=== PATIENT | male | born 1965 | race Hispanic/Latino ===

== ENCOUNTER 2019-11-06 13:32 | Inpatient (IN) | payer SELFPAY ==
[2019-11-06 14:33] LABS: Absolute Lymphocytes (CBC) 0.6 K/uL (0.7-4.9); Basophils % 0.3 % (0-1.3); Hematocrit 42.5 % (39.6-49.0); Lymphocytes % 7.3 % (15.3-44.8); MPV 8.5 fL (7.6-11.3); RBC Red Blood Cell Count 4.97 M/uL (4.33-5.43)
[2019-11-06 14:34] LABS: Protime INR 1.15
[2019-11-06] MEDS ORDERED: CEFTRIAXONE/SWI 1gm 1 GM/10 ML SYR ONE (14:46)
[2019-11-06] MEDS ORDERED: NA CHLORIDE 0.9% 1,000 ML ONE (14:46)
[2019-11-06 14:53] LABS: ALT/SGPT 42 U/L (12-78); AST/SGOT 43 U/L (15-37); Albumin 3.3 g/dL (3.4-5.0); Alkaline Phosphatase 45 U/L (45-117); BUN Blood Urea Nitrogen 10 mg/dL (7-18); Bicarbonate 21 mmol/L (21-32); Bilirubin Direct 0.1 mg/dL (0-0.2); Bilirubin Total 0.4 mg/dL (0.2-1.0); Glucose Level 134 mg/dL (74-106); Magnesium 2.2 mg/dL (1.8-2.4); NT PRO-BNP 39 pg/mL (<125); Protein, Total 8.2 g/dL (6.4-8.2); Sodium Level 129 mmol/L (136-145); Troponin (Emerg Dept Use Only) < 0.02 ng/mL (0.0-0.045)
--- NOTE | 2019-11-06 14:53 | RAD REPORT ---
EXAM DESCRIPTION: Jose Single View11/06/2019 2:40 pm CLINICAL HISTORY: cough COMPARISON: none FINDINGS: Mild reticulonodular opacities suspected within the lung bases A lung consolidation is not seen. The heart is normal size IMPRESSION: Mild reticulonodular opacities suspected within the lung bases which may indicate an aty pical pneumonia
[2019-11-06] MEDS ORDERED: AZITHROMYCIN IV 500 MG in NA CHLORIDE 0.9% 250 ML IVPB ONE (15:00)
--- NOTE | 2019-11-06 15:13 | EDPHYS ---
Physician Documentation [facility] Name: Tyrone Bueno Age: 54 yrs Sex: Male : 1965 Arrival Date: 11/06/2019 Time: 13:37 Bed 6 Private MD: ED Physician Estiven Coronado HPI: 11/05 14:15 This 54 yrs old Male presents to ER via Wheelchair with complaints of Cough, oj Shortness Of Breath. 14:15 The patient or guardian reports cough, described as mild, difficulty breathing. Onset: oj The symptoms/episode began/occurred 4 day(s) ago. Severity of symptoms: At their worst the symptoms were mild, in the emergency department the symptoms are unchanged. Modifying factors: The symptoms are alleviated by nothing, the symptoms are aggravated by nothing. Associated signs and symptoms: Pertinent positives: chest pain, rhinorrhea, sore throat, this patient has no pertinent positive symptoms. The patient has not experienced similar symptoms in the past. Historical: - Allergies: 13:50 No Known Allergies; hb - PMHx: 13:50 Hypertension; hb - PSHx: 13:50 None; hb - Immunization history:: Adult Immunizations up to date. - Social history:: Smoking status: Patient/guardian denies using tobacco. - Family history:: not pertinent. ROS: 14:15 Constitutional: Negative for fever, chills, and weight loss, Eyes: Negative for injury, oj pain, redness, and discharge, ENT: Negative for injury, pain, and discharge, Neck: Negative for injury, pain, and swelling, Cardiovascular: Negative for chest pain, palpitations, and edema, Abdomen/GI: Negative for abdominal pain, nausea, vomiting, diarrhea, and constipation, Back: Negative for injury and pain, : Negative for injury, bleeding, discharge, and swelling, MS/Extremity: Negative for injury and deformity, Skin: Negative for injury, rash, and discoloration, Neuro: Negative for headache, weakness, numbness, tingling, and seizure, Psych: Negative for depression, anxiety, suicide ideation, homicidal ideation, and hallucinations, Allergy/Immunology: Negative for hives, rash, and allergies, Endocrine: Negative for neck swelling, polydipsia, polyuria, polyphagia, and marked weight changes, Hematologic/Lymphatic: Negative for swollen nodes, abnormal bleeding, and unusual bruising. 14:15 Respiratory: Positive for cough, shortness of breath. Exam: 14:15 Constitutional: This is a well developed, well nourished patient who is awake, alert, oj and in no acute distress. Head/Face: Normocephalic, atraumatic. Eyes: Pupils equal round and reactive to light, extra-ocular motions intact. Lids and lashes normal. Conjunctiva and sclera are non-icteric and not injected. Cornea within normal limits. Periorbital areas with no swelling, redness, or edema. ENT: Nares patent. No nasal discharge, no septal abnormalities noted. Tympanic membranes are normal and external auditory canals are clear. Oropharynx with no redness, swelling, or masses, exudates, or evidence of obstruction, uvula midline. Mucous membranes moist. Neck: Trachea midline, no thyromegaly or masses palpated, and no cervical lymphadenopathy. Supple, full range of motion without nuchal rigidity, or vertebral point tenderness. No Meningismus. Chest/axilla: Normal chest wall appearance and motion. Nontender with no deformity. No lesions are appreciated. Cardiovascular: Regular rate and rhythm with a normal S1 and S2. No gallops, murmurs, or rubs. Normal PMI, no JVD. No pulse deficits. Abdomen/GI: Soft, non-tender, with normal bowel sounds. No distension or tympany. No guarding or rebound. No evidence of tenderness throughout. Back: No spinal tenderness. No costovertebral tenderness. Full range of motion. Male : Normal genitalia with no discharge or lesions. Skin: Warm, dry with normal turgor. Normal color with no rashes, no lesions, and no evidence of cellulitis. MS/ Extremity: Pulses equal, no cyanosis. Neurovascular intact. Full, normal range of motion. Neuro: Awake and alert, GCS 15, oriented to person, place, time, and situation. Cranial nerves II-XII grossly intact. Motor strength 5/5 in all extremities. Sensory grossly intact. Cerebellar exam normal. Normal gait. Psych: Awake, alert, with orientation to person, place and time. Behavior, mood, and affect are within normal limits. 14:15 Respiratory: the patient does not display signs of respiratory distress, Respirations: normal, Breath sounds: decreased breath sounds, that are mild, Respiratory rate: 16 Vital Signs: 13:46 BP 113 / 82; Pulse 98; Resp 16; Temp 98; Pulse Ox 94% ; Weight 63.5 kg; Height 5 ft. 8 hb in. (172.72 cm); Pain 0/10; 14:40 BP 121 / 97; Pulse 87; Resp 22 S; Pulse Ox 97% on R/A; aa5 16:00 BP 128 / 88; Pulse 90; Resp 24 S; Temp 98.0(TE); Pulse Ox 96% on R/A; Pain 0/10; aa5 17:00 BP 129 / 89; Pulse 88; Resp 24 S; Pulse Ox 95% on R/A; aa5 13:46 Body Mass Index 21.29 (63.50 kg, 172.72 cm) hb MDM: 13:51 Patient medically screened. [facility] 14:18 Data reviewed: vital signs, nurses notes, lab test result(s), EKG, radiologic studies, oj plain films. 11/05 14:15 Order name: Basic Metabolic Panel [facility] 11/05 14:15 Order name: CBC with Diff [facility] 11/05 14:15 Order name: LFT's [facility] 11/05 14:15 Order name: Magnesium [facility] 11/05 14:15 Order name: NT PRO-BNP [facility] 11/05 14:15 Order name: PT-INR; Complete Time: 15:09 [facility] 11/05 14:15 Order name: Troponin (emerg Dept Use Only); Complete Time: 15:09 [facility] 11/05 14:15 Order name: Blood Culture Adult (2) [facility] 11/05 14:15 Order name: Strep; Complete Time: 15:09 [facility] 11/05 14:15 Order name: Influenza Screen (a \T\ B); Complete Time: 15:09 [facility] 11/05 14:15 Order name: COVID-19 [facility] 11/05 14:15 Order name: Lactate; Complete Time: 15:09 [facility] 11/05 14:16 Order name: Basic Metabolic Panel; Complete Time: 15:09 [facility] 11/05 14:16 Order name: CBC with Automated Diff [facility] 11/05 14:16 Order name: Liver (Hepatic) Function; Complete Time: 15:09 EDMS 11/05 14:16 Order name: Magnesium; Complete Time: 15:09 [facility] 11/05 14:16 Order name: NT PRO-BNP; Complete Time: 15:09 [facility] 11/05 14:56 Order name: Throat Culture [facility] 11/05 17:12 Order name: Comprehensive Metabolic Panel [facility] 11/05 17:12 Order name: Comprehensive Metabolic Panel [facility] 11/05 17:12 Order name: Creatine Phosphokinase [facility] 11/05 17:13 Order name: Creatine Phosphokinase [facility] 11/05 17:13 Order name: Creatine Phosphokinase [facility] 11/05 17:13 Order name: Creatine Phosphokinase [facility] 11/05 17:13 Order name: Troponin I [facility] 11/05 17:13 Order name: Troponin I [facility] 11/05 17:13 Order name: Troponin I [facility] 11/05 17:13 Order name: Troponin I [facility] 11/05 17:13 Order name: Sputum Culture [facility] 11/05 17:13 Order name: Sputum Gram Stain [facility] 11/05 14:15 Order name: XRAY Chest (1 view); Complete Time: 15:09 [facility] 11/05 14:15 Order name: EKG; Complete Time: 14:17 [facility] 11/05 14:15 Order name: Cardiac monitoring; Complete Time: 14:49 [facility] 11/05 14:15 Order name: EKG - Nurse/Tech; Complete Time: 14:49 [facility] 11/05 14:15 Order name: IV Saline Lock; Complete Time: 14:49 [facility] 11/05 14:15 Order name: Labs collected and sent; Complete Time: 14:49 [facility] 11/05 14:15 Order name: O2 Per Protocol; Complete Time: 14:49 [facility] 11/05 14:15 Order name: O2 Sat Monitoring; Complete Time: 14:49 [facility] 11/05 15:10 Order name: CT Chest For PE Angio [facility] 11/05 17:12 Order name: CONS Pharmacy Consult [facility] 11/05 17:12 Order name: CONS Pharmacy Consult [facility] 11/05 17:12 Order name: CONS Physician Consult [facility] 11/05 17:12 Order name: CONS Physician Consult [facility] 11/05 17:14 Order name: Regular [facility] 11/05 17:14 Order name: CORONAVIRUS [facility] Administered Medications: 14:40 Drug: NS 0.9% 1000 ml Route: IV; Rate: 1 bolus; Site: right forearm; aa5 16:00 Follow up: IV Status: Completed infusion; IV Intake: 1000ml aa5 16:00 Drug: Rocephin 1 grams Route: IV; Rate: per protocol; Site: right forearm; aa5 16:03 Follow up: Response: No adverse reaction; IV Status: Completed infusion aa5 16:03 Drug: Zithromax 500 mg Route: IVPB; Infused Over: 1 hrs; Site: right forearm; aa5 17:03 Follow up: Response: No adverse reaction; IV Status: Completed infusion aa5 Disposition: 11/06/19 15:12 Hospitalization ordered by Cade Mullins for Inpatient Admission. Preliminary diagnosis are Cough, Dyspnea, Hypoxemia, Pneumonia, unspecified organism - atypical bilateral bases, failed outpatient treatment. - Bed requested for Telemetry/MedSurg (Inpatient). - Status is Inpatient Admission. aa5 - Condition is Fair. - Problem is new. - Symptoms have improved. Signatures: Dispatcher [employer] EDMS Mitali Alberto Corey, MD MD cha Calderon, Audri, RN RN [facility] Alissa Bess RN RN Corrections: (The following items were deleted from the chart) 17:25 15:12 Hospitalization Ordered by Cade Mullins MD for Inpatient Admission. Preliminary bd diagnosis is Cough; Dyspnea; Hypoxemia; Pneumonia, unspecified organism - atypical bilateral bases, failed outpatient treatment. Bed requested for Telemetry/MedSurg (Inpatient). Status is Inpatient Admission. Condition is Fair. Problem is new. Symptoms have improved. [facility] 18:45 17:25 11/06/2019 15:12 Hospitalization Ordered by Cade Mullins MD for Inpatient aa5 Admission. Preliminary diagnosis is Cough; Dyspnea; Hypoxemia; Pneumonia, unspecified organism - atypical bilateral bases, failed outpatient treatment. Bed requested for Telemetry/MedSurg (Inpatient). Status is Inpatient Admission. Condition is Fair. Problem is new. Symptoms have improved. bd
--- NOTE | 2019-11-06 15:13 | ER ---
Nurse's Notes [facility] Name: Tyrone Bueno Age: 54 yrs Sex: Male : 1965 Arrival Date: 11/06/2019 Time: 13:37 Bed 6 Private MD: Diagnosis: Cough;Dyspnea;Hypoxemia;Pneumonia, unspecified organism-atypical bilateral bases, failed outpatient treatment Presentation: 11/05 13:46 Chief complaint: Productive cough, chills, and diarrhea x 5 days. Coronavirus screen: hb Proceed with normal triage. Ebola Screen: No symptoms or risks identified at this time. Risk Assessment: Do you want to hurt yourself or someone else? Patient reports no desire to harm self or others. Onset of symptoms was November 01, 2019. 13:46 Method Of Arrival: Wheelchair hb 13:46 Acuity: KAYE 2 hb 14:00 Initial Sepsis Screen: Does the patient meet any 2 criteria? HR > 90 bpm. Does the aa5 patient have a suspected source of infection? Yes: Productive cough/pneumonia. 11/06 09:28 Coronavirus screen: [facility] has been notified of iw person under investigation for COVID-19. [facility] pt lives in [facility], lab notified. 10:03 Coronavirus screen: PUI#: PUI# [id number], called to lab. iw Historical: - Allergies: 11/05 13:50 No Known Allergies; hb - PMHx: 13:50 Hypertension; hb - PSHx: 13:50 None; hb - Immunization history:: Adult Immunizations up to date. - Social history:: Smoking status: Patient/guardian denies using tobacco. - Family history:: not pertinent. Screenin:00 Abuse screen: Denies threats or abuse. Nutritional screening: No deficits noted. aa5 Tuberculosis screening: No symptoms or risk factors identified. Fall Risk None identified. Assessment: 14:00 General: Appears comfortable, Behavior is calm, cooperative. Pain: Denies pain. Neuro: aa5 Level of Consciousness is awake, alert, obeys commands, Oriented to person, place, time, situation. Cardiovascular: Heart tones S1 S2 present Rhythm is regular. Respiratory: Reports shortness of breath at rest cough Airway is patent Respiratory effort is even, unlabored, Respiratory pattern is regular, symmetrical, Breath sounds are diminished bilaterally. GI: Abdomen is round non-distended, Bowel sounds present X 4 quads. Abd is soft and non tender X 4 quads. Patient currently denies diarrhea, nausea, vomiting. : No signs and/or symptoms were reported regarding the genitourinary system. EENT: No signs and/or symptoms were reported regarding the EENT system. Derm: Skin is pink, warm \T\ dry. Musculoskeletal: Range of motion: intact in all extremities. 14:35 Reassessment: x-ray completed by x-ray tech, EKG completed. . aa5 15:00 Reassessment: Pt states he went to a clinic this morning and received antibiotics. aa5 Clinic was contacted and reported administering ceftriaxone 1 gram IM and had been on Azithromycin PO for 5 days prior to today. Dr. Coronado was notified. . 15:35 Reassessment: Pt to CT via stretcher . aa5 16:00 Reassessment: Patient is alert, oriented x 3, equal unlabored respirations, skin aa5 warm/dry/pink. 16:00 Reassessment: SOB noted upon exertion, using urinal at side of bed, pt becomes SOB, HR aa5 increases to 107bpm, and O2 decreases to 94% RA, respirations increase to 34 breaths/minute. . 17:03 Reassessment: Patient is alert, oriented x 3, equal unlabored respirations, skin aa5 warm/dry/pink. Pt sitting up in bed. . 18:40 Reassessment: Patient is alert, oriented x 3, equal unlabored respirations, skin aa5 warm/dry/pink. Vital Signs: 13:46 BP 113 / 82; Pulse 98; Resp 16; Temp 98; Pulse Ox 94% ; Weight 63.5 kg; Height 5 ft. 8 hb in. (172.72 cm); Pain 0/10; 14:40 BP 121 / 97; Pulse 87; Resp 22 S; Pulse Ox 97% on R/A; aa5 16:00 BP 128 / 88; Pulse 90; Resp 24 S; Temp 98.0(TE); Pulse Ox 96% on R/A; Pain 0/10; aa5 17:00 BP 129 / 89; Pulse 88; Resp 24 S; Pulse Ox 95% on R/A; aa5 13:46 Body Mass Index 21.29 (63.50 kg, 172.72 cm) hb ED Course: 13:37 Patient arrived in ED. ag5 13:49 Triage completed. hb 13:50 Arm band placed on. hb 13:51 Estiven Coronado MD is Attending Physician. oj 13:51 Rahul Loza, RN is Primary Nurse. ll1 13:52 Gloira Villalba, RN is Primary Nurse. aa5 14:00 Patient has correct armband on for positive identification. Placed in gown. Bed in low aa5 position. Call light in reach. Side rails up X2. monitor car operator on. Pulse ox on. NIBP on. 14:19 Inserted saline lock: 20 gauge in right forearm, using aseptic technique. Blood aa5 collected. 14:19 Initial lab(s) drawn, by me, sent to lab. First set of blood cultures drawn by me. aa5 14:30 Second set of blood cultures drawn by me. Inserted saline lock: 20 gauge in right aa5 antecubital area, using aseptic technique. Blood collected. 14:41 XRAY Chest (1 view) In Process Unspecified. EDMS 15:11 Cade Mullins MD is Hospitalizing Provider. oj 15:46 CT Chest For PE Angio In Process Unspecified. EDMS 18:40 Patient admitted, IV remains in place. aa5 18:40 No provider procedures requiring assistance completed. aa5 Administered Medications: 14:40 Drug: NS 0.9% 1000 ml Route: IV; Rate: 1 bolus; Site: right forearm; aa5 16:00 Follow up: IV Status: Completed infusion; IV Intake: 1000ml aa5 16:00 Drug: Rocephin 1 grams Route: IV; Rate: per protocol; Site: right forearm; aa5 16:03 Follow up: Response: No adverse reaction; IV Status: Completed infusion aa5 16:03 Drug: Zithromax 500 mg Route: IVPB; Infused Over: 1 hrs; Site: right forearm; aa5 17:03 Follow up: Response: No adverse reaction; IV Status: Completed infusion aa5 Intake: 16:00 IV: 1000ml; Total: 1000ml. aa5 Output: 16:00 Urine: 1000ml (Voided); Total: 1000ml. aa5 Outcome: 15:12 Decision to Hospitalize by Provider. oj 18:40 Admitted to Tele accompanied by tech, via stretcher, with chart, Report called to chavo Godinez RN 18:40 Condition: stable 18:40 Discharge instructions given to patient, Instructed on the need for admit, Demonstrated understanding of instructions. 18:45 Patient left the ED. aa5 Addendum: 14:00 Addendum: Other 11/06/19 at 1400 Droplet precautions were initiated per , positive for a a5 cough and SOB. Signatures: Dispatcher [employer] EDEstiven Patel MD MD cha Williams, Irene, RN Gloria Magdaleno RN RN Alissa Rothman RN RN hb Gaskin, Ajare 5 Rahul Loza RN RN ll1 Corrections: (The following items were deleted from the chart) 19:22 19:21 Patient did not have IV access during this emergency room visit. aaKeyana tony 11/08 07:39 11/06/2019 14:00 Addendum: Other 11/06/19 at 1400 Droplet precautions were initiated per chavo CALDERÓN. aaKeyana
--- NOTE | 2019-11-06 16:09 | RAD REPORT ---
EXAM DESCRIPTION: CT - Chest For Pe Angio - 11/06/2019 3:46 pm CLINICAL HISTORY: cough COMPARISON: None. TECHNIQUE: Dynamically enhanced axial 3 mm thick images of the chest were obtained during administra tion of <100> mL Isovue 370 IV contrast. Coronal and oblique reconstruction images were generated and reviewed. Exam utilizes a protocol for optimal evaluation of pulmonary arterial tree. Maximum intensity projections 3D imaging was utilized All CT scans are performed using dose optimization technique as appropriate and may include automated exposure control or mA/KV adjustment according to patient size. FINDINGS: A pulmonary embolus is not seen. A thoracic aortic aneurysm is not noted. A pleural effusion is not seen. A pericardial effusion is not seen. Mild to moderate peripheral ground-glass opacities IMPRESSION: Negative for a pulmonary embolism. Mild to moderate peripheral ground-glass opacities may indicate Covid pneumonia
[2019-11-06] MEDS ORDERED: ACETAMINOPHEN 500 MG TAB PO PRN (17:03)
[2019-11-06] MEDS ORDERED: MORPHINE 2 MG/ML SYR IV PRN (17:03)
[2019-11-06] MEDS ORDERED: ONDANSETRON 4 MG/2 ML VIAL IV PRN (17:03)
[2019-11-06] MEDS ORDERED: HYDRALAZINE HCL 20 MG/ML VIAL IV PRN (17:06)
[2019-11-06] MEDS: ENOXAPARIN 40 MG/0.4 ML SQ SCH (21:16)
[2019-11-06] MEDS: HYDROXYCHLOROQUINE 200MG TAB PO SCH (21:16)
[2019-11-06] MEDS: FAMOTIDINE 20 MG TAB PO SCH (21:16)
[2019-11-06] MEDS: GUAIFENESIN 600 MG SA TAB PO SCH (21:16)
[2019-11-06] MEDS: ALBUTEROL INHALER 60 PUFF/8 GM IH SCH (21:16)
[2019-11-06] MEDS: predniSONE 20 MG TAB PO SCH (21:17)
[2019-11-06 21:52] VITALS: BMI 23.8
--- NOTE | 2019-11-06 22:18 | HP ---
Date of Admission: 11/06/2019 Presenting Complaint: Cough, shortness of breath. History Of Present Illness: Tyrone Bueno is a 54-year-old male with past medical h istory of hypertension, former tobacco use, admitted because of cough, usually nonproductive. Patien t admitted to diarrhea for 5 days prior to onset of worsening shortness of breath. He denies any fev er or chills. He is mainly speaking and history was limited. He admits to body aches. He denies any chills. On presentation in the ED, he was saturating at 94% on room air. He denies any r ecent cough contact. He denies any recent travel. Past Medical History: Hypertension. Surgical History: None. Allergies: NO KNOWN DRUG ALLERGIES. Home Medications: None. Family History: No history of lung cancer or COPD. Social History: Patient resides in the community. He admits to previous tobacco use, but says he qu it over 10 years ago. No history of alcohol abuse or illicit drug use. Review of Systems: All systems reviewed x10, were negative except as mentioned above. Physical Examination: Current Vital Signs: Blood pressure of 112/83, pulse 98, respiratory rate 19, temperature 98, pulse oximetry 94% on room air. General: Middle-aged male, average built, lying in bed. HEENT: Head is atraumatic, normocephalic. Pupils equal and reactive to light. Neck: No JVD. No carotid bruit. Respiratory: Decreased breath sounds at bases, but otherwise good air entry with no wheeze. Cardiovascular: S1, S2. Rate and rhythm regular. GI: Abdomen full, soft, nontender. Extremities: No pedal edema. No calf tenderness. Neuro: Patient is alert, oriented, conversant. Laboratory Data: WBC 8.5, hemoglobin 14, neutrophils 89%, lymphocytes 7.3%. INR 1.1. Sodium 129, p otassium 4, glucose 134, magnesium 2.2. ProBNP of 39. Rapid troponin was less than 0.02. Imaging Data: Chest x-ray shows bilateral hilar infiltrates. CT of the chest rule out PE protocol s hows no evidence of pulmonary embolism, but notable bilateral infiltrates worrisome for viral pneumon ia and COVID-19 infection. Impression: 1.Bilateral pneumonia. 2.Possible COVID-19 infection. 3.History of hypertension. Plan: We will admit patient to inpatient. We will start patient on contact and droplet precautions. We will initiate patient on steroids p.o. as well as Plaquenil and Zithromax IV. We will do MDI in halers as needed. We will also initiate patient on Mucomyst for cough symptoms. We will obtain sput um for culture and sensitivity as well as COVID-19 testing. We will consult Pulmonary. We will do L ovenox for DVT prophylaxis. IV hydralazine p.r.n. hypertension. We will start patient on regular p. o. diet for now. We will consult Nephrology for hyponatremia, but we will follow closely. We will c ontinue to follow. We will not start patient on IV fluid hydration for now. Possible hospital stay of more than 48 hours. We will continue to follow. Total time spent greater than 55 minutes. WILLIAM/MODL Voice ID: [id number]
[2019-11-06 22:22] LABS: Blood Morphology Comment NOT SEEN (NOT SEEN); Platelet Estimate ADEQ; Urine White Blood Cell Casts OK
[2019-11-07 04:19] LABS: Hematocrit 40.6 % (39.6-49.0); Lymphocytes % 19.4 % (15.3-44.8); RBC Red Blood Cell Count 4.73 M/uL (4.33-5.43)
[2019-11-07 04:20] LABS: Absolute Lymphocytes (CBC) 0.9 K/uL (0.7-4.9); Basophils % 0.7 % (0-1.3)
[2019-11-07 04:54] LABS: ALT/SGPT 38 U/L (12-78); AST/SGOT 32 U/L (15-37); Albumin 2.9 g/dL (3.4-5.0); Alkaline Phosphatase 42 U/L (45-117); BUN Blood Urea Nitrogen 17 mg/dL (7-18); Bicarbonate 24 mmol/L (21-32); Bilirubin Total 0.3 mg/dL (0.2-1.0); Glucose Level 150 mg/dL (74-106); Protein, Total 7.5 g/dL (6.4-8.2); Sodium Level 135 mmol/L (136-145)
[2019-11-07 04:55] LABS: Creatine Phosphokinase 427 U/L (39-308); Troponin I < 0.02 ng/mL (0.0-0.045)
[2019-11-07 05:06] LABS: Potassium 5.6 mmol/L (3.5-5.1)
[2019-11-07] MEDS ORDERED: FUROSEMIDE 20 MG/ 2ML VIAL IV ONE (05:11)
[2019-11-07] MEDS: ALBUTEROL INHALER 60 PUFF/8 GM IH SCH ×3 (05:26→11:56)
[2019-11-07] MEDS: HYDROXYCHLOROQUINE 200MG TAB PO SCH (08:16)
[2019-11-07] MEDS: ENOXAPARIN 40 MG/0.4 ML SQ SCH (08:16)
[2019-11-07] MEDS: predniSONE 20 MG TAB PO SCH (08:17)
[2019-11-07] MEDS: FAMOTIDINE 20 MG TAB PO SCH (08:17)
[2019-11-07] MEDS: GUAIFENESIN 600 MG SA TAB PO SCH (08:17)
[2019-11-07] MEDS ORDERED: ASPIRIN EC 81 MG TAB PO SCH (09:00)
[2019-11-07] MEDS ORDERED: AZITHROMYCIN IV 500 MG in NA CHLORIDE 0.9% 250 ML IVPB SCH (09:00)
[2019-11-07] MEDS ORDERED: NICOTINE 21 MG/PAT TD SCH (09:00)
[2019-11-07] MEDS ORDERED: INFLUENZA VACCINE (for 3y+) 0.5 ML DOSE IMVAC ONE (09:00)
[2019-11-07] MEDS ORDERED: D50W 25 GM/50 ML SYRINGE/VIAL IV ONE (10:15)
[2019-11-07] MEDS ORDERED: INSULIN -REGULAR HUMAN 50 UNIT/0.5 ML ML IV ONE (10:16)
[2019-11-07] MEDS ORDERED: GLUCAGON 1 MG/VIAL IM PRN (10:16)
[2019-11-07] MEDS ORDERED: D50W 25 GM/50 ML SYRINGE/VIAL IV PRN (10:16)
[2019-11-07] MEDS ORDERED: FUROSEMIDE 40 MG/4 ML VIAL IV ONE (11:16)
[2019-11-07] MEDS ORDERED: NA CHLORIDE 0.9% 1,000 ML IV ONE (11:16)
[2019-11-07] MEDS ORDERED: CEFTRIAXONE/SWI 1gm 1 GM/10 ML SYR IV SCH (11:30)
[2019-11-07 11:54] VITALS: BP 131/85
[2019-11-07 12:13] LABS: Urine Appearance CLEAR; Urine Bilirubin NEGATIVE (NEG); Urine Blood NEGATIVE (NEG); Urine Color YELLOW; Urine Glucose NEGATIVE (NEG); Urine Protein NEGATIVE (NEG); Urine Specific Gravity 1.015 (1.005-1.030); Urine Urobilinogen 0.2 mg/dL (0.2-1.0)
[2019-11-07 12:17] LABS: Urine Microscopic Reflex NO UMIC
--- NOTE | 2019-11-07 13:40 | P.DS ---
Admission Date: 11/06/19 Discharge Date: 11/10/19 Disposition: ROUTINE DISCHARGE Discharge Condition: GOOD Reason for Admission: Cough and shortness of breath Procedures: None Brief History of Present Illness: 54-year-old speaking gentleman with a history of tobacco use and hypertension presented to the ED with a complaint of cough and shortness of breath, symptoms preceded by diarrhea, no fever or chest pain. Chest x-ray and CT chest reported bilateral interstitial opacities. There was a concern for Covid pneumonia. Blood work also suggested hyponatremia. Patient was admitted for further management. Hospital Course: He was admitted to the medical floor and started on IV Zithromax and plaquenil. Test for Covid 19 was sent and the result is pending. Hyponatremia improved with IV hydration. Other electrolyte imbalances like hyperkalemia was corrected. Patient was asymptomatic, afebrile. He is deemed clinically stable for discharge. Patient is discharged with oral Zithromax and Augmentin for pneumonia pending Covid 19 result. He has been given instructions regarding self quarantine. He is also informed to return to the ED for increasing shortness of breath or worsening symptoms. Vital Signs/Physical Exam: Temp Pulse Resp BP Pulse Ox 97.3 F 81 18 131/85 93 11/07/19 08:00 11/07/19 11:54 11/07/19 08:00 11/07/19 11:54 11/07/19 08:00 General: Alert, In no apparent distress, Oriented x3 HEENT: Mucous membr. moist/pink Neck: Supple, JVD not distended Respiratory: Crackles/rales (Mild diffuse crackles.) Cardiovascular: No edema, Regular rate/rhythm, Normal S1 S2 Gastrointestinal: Normal bowel sounds, Soft and benign, Non-distended, No tenderness Musculoskeletal: No erythema Integumentary: No rashes Neurological: Normal speech, Normal strength at 5/5 x4 extr Laboratory Data at Discharge: WBC 4.4 K/uL (4.3-10.9) D 11/07/19 03:32 Hgb 13.8 g/dL (13.6-17.9) 11/07/19 03:32 Hct 40.6 % (39.6-49.0) 11/07/19 03:32 Plt Count 258 K/uL (152-406) 11/07/19 03:32 PT 13.5 SECONDS (9.5-12.5) H 11/06/19 14:19 INR 1.15 11/06/19 14:19 Sodium 135 mmol/L (136-145) L 11/07/19 03:32 Potassium 3.6 mmol/L (3.5-5.1) 11/07/19 12:15 BUN 17 mg/dL (7-18) 11/07/19 03:32 Creatinine 0.79 mg/dL (0.55-1.3) 11/07/19 03:32 Glucose 150 mg/dL (74-106) H 11/07/19 03:32 Magnesium 2.2 mg/dL (1.8-2.4) 11/06/19 14:19 Total Bilirubin 0.3 mg/dL (0.2-1.0) 11/07/19 03:32 AST 32 U/L (15-37) 11/07/19 03:32 ALT 38 U/L (12-78) 11/07/19 03:32 Alkaline Phosphatase 42 U/L (45-117) L 11/07/19 03:32 Troponin I < 0.02 ng/mL (0.0-0.045) 11/07/19 03:32 Home Medications: Amoxicillin/Potassium Clav [Augmentin 875-125 Tablet] 1 each PO BID #14 tablet 11/07/19 Azithromycin Tab [Zithromax*] 500 mg PO DAILY #5 tab 11/07/19 Telmisartan [Micardis] 1 tab PO DAILY 11/07/19 New Medications: Amoxicillin/Potassium Clav [Augmentin 875-125 Tablet] 1 each PO BID #14 tablet Azithromycin Tab [Zithromax*] 500 mg PO DAILY #5 tab Patient Discharge Instructions: Please self quarantine at home. Wear mask all the time until CoVid test result. If negative, you don't have to continue quarantine. Continue self quarantine if test result is positive. Try to isolate from family as much as possible until Covid 19 result. Continue to isolate isola te if positive. Please return to the ED if you develop increasing shortness of breath. Diet: AHA Activity: Ad jennifer Time spent managing pt's care (in minutes): 42
[2019-11-07 13:56] VITALS: O2SAT 95
[2019-11-07 14:06] VITALS: TEMP 97.9
--- NOTE | 2019-11-07 15:09 | CON ---
Date of Consultation: 11/07/2019 Reason For Consultation: Hyponatremia, hyperkalemia. History Of Present Illness: This is a pleasant 54-year-old gentleman. All the information has been obtained with the help of the cyanide case hardener and the interview was done as telemedicine as the patient on isolation because of COVID-19 suspicious. Patient with significant past medical history of hyperten carlene, on Micardis, patient was in his regular state of health, started having cough for the last 2 we eks with whitish sputum. Went to his Primary Care, treated, did not improve. For that reason, he we nt back to his Primary Care, advised him to report to the hospital. Upon arrival to the hospital, jennie lynn found to have hypoxemic, down to 94 on room air. No fever or chills. A primary workup showed hyponatremia, sodium 129 and hyperkalemia, potassium 5.6. Patient was admitted with CT showing pneum onia suspicious of COVID-19. The patient was admitted for further treatment. Patient was treated on azithromycin with Plaquenil. Patient started feeling slightly better. Past Medical History: Includes hypertension. Surgical History: Negative. Allergies: NO KNOWN DRUG ALLERGIES. Home Medications: Micardis. Family History: Positive for cancer. Social History: Ex-smoker. Denied alcohol. Denied drugs abuse. Review of Systems: Head and Neck: No red eye. No ear pain. GI: No nausea. No vomiting. : No polyuria. No dysuria. No hematuria. Top Distribution Executive: Not applicable. Respiratory: Has cough, has shortness of breath. Cardiovascular: No chest pain. Endocrine: No polydipsia. Skin: No rash. Neuro: No weakness. Musculoskeletal: No joint pain. Physical Examination: Vital Signs: When I saw the patient, blood pressure of 139/86, pulse of 72, afebrile. Chest: Was not done as exam was done by telemedicine. Abdomen: No tenderness. Extremities: No edema by using the telemedicine camera. Neuro: No focality. No tremor. Laboratory Data: WBC 4.4, H and H 13.8/40.6, platelets 258. Sodium 135, potassium 5.6, bicarb 24, B UN 17, creatinine 0.7, calcium 8.1. Current Medications: The patient on include azithromycin, ceftriaxone, Lovenox, Lasix 20. Assessment And Plan: 1.Hyponatremia, possible secondary to angiotensin receptor jodee, questionable prerenal superimpos ed with angiotensin receptor jodee, questionable secondary to atypical pneumonia. With the presenc e of hyperkalemia, adrenal insufficiency needs to be ruled out. I am going to go ahead and continue on hydration as currently sodium started to normalize. We will send for cortisol, TSH, and urine miki ctrolytes and we will follow up. 2.Hyperkalemia with the presence of hyponatremia. Adrenal insufficiency needs to be ruled out. I a m going to start the patient on D50 with 10 units of insulin. We will give the patient normal saline bolus and Lasix to establish better potassium diuresis and we will follow up. 3.Hypertension. Given the hyponatremia, hyperkalemia, hold on angiotensin receptor jodee for the time being. Currently, blood pressure controlled. 4.Pneumonia, possible coronavirus disease 2019, atypical pneumonia. Patient was started on azithrom ycin and Plaquenil. We will follow up with the primary. Thank you, Dr. Mullins, for allowing us to participate in the care of your patient. Again, this vis it was done as telemedicine using video and cyanide case hardener. EMILIA Voice ID: [id number] Report ID: [id number]
--- NOTE | 2019-11-07 15:53 | EKG ---
Test Date: 2019-11-06 Test Time: 14:36:54 Rock Singer: MIAH MEASUREMENT RESULTS: Intervals: Rate: 88 PA: 168 QRSD: 84 QT: 352 QTc: 425 [place]: P: 37 PA: 168 QRS: -33 T: 14 INTERPRETIVE STATEMENTS: Normal sinus rhythm Left axis deviation Abnormal ECG No previous ECG available for comparison Electronically Signed On 11-07-19 15:50:36 CDT by Benito Lucas
[2019-11-08] MEDS ORDERED: AZITHROMYCIN 250 MG TAB PO SCH (09:00)
--- NOTE | 2019-11-08 17:59 | P.PN ---
Subjective Date of Service: 11/08/19 Primary Care Provider: Aarti Mckeon in [place] Chief Complaint: Cough and shortness of breath Subjective: Other (I called the patient to inform him that he tested positive for COVID-19. He reports to me that he is doing fine. No significant shortness of breath, fever, or respiratory symptoms. He mentions a cough but not severe. He is in quarantine. He lives with his . He is limiting his exposure. He reports to me that he has no respiratory chronic medical problems. He is a ex smoker but did not smoke a great deal. He reports no recent travel. 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 He has been practicing social distancing.) Physical Examination - Vital Signs Temperature: 97.9 F Blood Pressure: 131/85 Pulse: 81 Respirations: 18 Pulse Ox (%): 95 - Studies Microbiology Data (last 24 hrs): 11/06/19 14:26 Throat Culture & Sensitivity - Final NORMAL UPPER RESPIRATORY ADELIA GROWN. Assessment & Plan Physician Review Additional Text: Impression: COVID bilateral pneumonia Plan: I gave the patient results of his COVID positive testing. He understands this. He is quarantined at home. He is practicing social distancing. He will continue with his medications that was given to him at discharge. I told him that the health department of his county will be informed and they will further investigate. He will be followed by the health department closely. I told him to monitor his temperature and symptoms daily. I told him some breathing exercises to help him monitor for worsening symptoms and to help him in general. His and coworkers will likely need to be investigated as well. I will reach out to all the doctors that provided his care. Time Spent Managing Pts Care (In Minutes): 15
--- NOTE | 2019-11-10 10:52 | P.CNS ---
Date of Consult: 11/10/19 Primary Care Provider: Aarti Mckeon in [place] Chief Complaint: Cough and shortness of breath History of Present Illness: Patient is 54 years of age admitted with acute onset of cough and shortness of breath this started 4 days ago for had any pulmonary complaints Irish-speaking only denies any other symptoms. Patient has some mild hyponatremia DT scan and shows some interstitial changes bilateral Allergies No Known Allergies Allergy (Verified 11/06/19 22:40) Home Medications: Amoxicillin/Potassium Clav [Augmentin 875-125 Tablet] 1 each PO BID #14 tablet 11/07/19 Azithromycin Tab [Zithromax*] 500 mg PO DAILY #5 tab 11/07/19 Telmisartan [Micardis] 1 tab PO DAILY 11/07/19 - Past Medical/Surgical History Diabetic: No -: HTN - Social History Alcohol use: Yes CD- Drugs: No Caffeine use: No Place of Residence: Home Physical Examination Temp Pulse Resp BP Pulse Ox 97.9 F 81 18 131/85 95 11/08/19 18:04 11/08/19 18:04 11/08/19 18:04 11/08/19 18:04 11/08/19 18:04 - Problems (1) Pneumonia Status: Acute Plan: Patient is 54 years of age admitted with acute onset of cough and shortness of breath mildly hypernatremic normal CBC he has got bilateral interstitial changes possible underlying coronal virus infection patient is not hypoxic hemodynamically stable can be discharged home to self isolate for 2 weeks from now virus test as been ordered this was a telephone visit Qualifiers: Pneumonia type: due to unspecified organism Laterality: bilateral
== END 2019-11-07 17:02 | disposition home or self-care (01) | DRG 177 ==
LOC: ER 13:32 → ERHOLD 17:04 → 4TH 18:20
PROVIDERS: ADMIT Internal Medicine; ATTEND Internal Medicine
DX: U07.1 COVID-19 (principal); J12.89 Other viral pneumonia; E87.1 Hypo-osmolality and hyponatremia; E87.5 Hyperkalemia; I10 Essential (primary) hypertension; Z79.899 Other long term (current) drug therapy; Z87.891 Personal history of nicotine dependence
CPT/HCPCS: 36415; 71045; 71275; 80048; 80053; 80076; 81003; 82533; 82550; 83605; 83735; 83880; 84132; 84300; 84484; 85025; 85610; 87040; 87070; 87081; 87205; 87804; 93005; 96361; 96365; 96375; 99285; J0456; J0696; J1650; J1940; J7030; J7512; Q9967; U0001